=== PATIENT | female | born 1960 | race Caucasian/White ===

== ENCOUNTER 2017-03-23 18:36 | Observation (INO) ==
[2017-03-23] MEDS ORDERED: DEXTROSE 50% 25 GM/50 ML VIAL IV PRN (20:58)
[2017-03-23] MEDS ORDERED: GLUCAGON 1 MG VIAL IM PRN (20:58)
[2017-03-23] MEDS ORDERED: ASPIRIN EC 325 MG TABLET PO SCH (21:00)
[2017-03-23] MEDS ORDERED: ALBUTEROL 2.5 MG/3 ML NEB RESP TX PRN (21:02)
[2017-03-23] MEDS ORDERED: oxyCODONE IR 5 MG TABLET PO PRN (21:02)
[2017-03-23] MEDS ORDERED: tiZANidine 4 MG TABLET PO PRN (21:02)
[2017-03-23] MEDS ORDERED: PRAVASTATIN 20 MG TABLET PO SCH (21:15)
[2017-03-23] MEDS ORDERED: Dulaglutide [Trulicity] 0.75 MG SUBCUT SCH (21:15)
[2017-03-23] MEDS ORDERED: POTASSIUM CHLORIDE 20 MEQ TABLET PO SCH (21:15)
[2017-03-23 21:27] LABS: Risk Ratio 3.71; VLDL CHOLESTEROL 31.8 MG/DL
[2017-03-23] MEDS: FUROSEMIDE 80 MG TABLET PO SCH (23:51)
[2017-03-24 04:02] LABS: Risk Ratio 3.76
[2017-03-24] MEDS ORDERED: CLOPIDOGREL 75 MG TABLET PO SCH (09:00)
[2017-03-24] MEDS ORDERED: sitaGLIPtin 100 MG TABLET PO SCH (09:00)
[2017-03-24] MEDS ORDERED: VALSARTAN 80 MG TABLET PO SCH (09:00)
[2017-03-24] MEDS ORDERED: LINACLOTIDE 145 MCG CAPSULE PO SCH (09:00)
[2017-03-24] MEDS ORDERED: ASPIRIN EC 81 MG TABLET PO SCH (09:00)
[2017-03-24] MEDS ORDERED: TRIAMTERENE/HCTZ 75-50 MG TABLET PO SCH (09:00)
[2017-03-24] MEDS: FERROUS SULFATE 325 MG TABLET PO SCH ×2 (09:05→15:10)
[2017-03-24] MEDS: FUROSEMIDE 80 MG TABLET PO SCH (09:05)
[2017-03-24 12:25] VITALS: BP 114/69
== END 2017-03-24 15:30 | disposition home or self-care (01) ==
LOC: EDUNIT# → EDBD → N.ED 18:36 → N.EDINP 18:36 → N.TELEN 22:35
PROVIDERS: ADMIT Internal Medicine Infectious Disease; ATTEND Internal Medicine Infectious Disease